=== PATIENT | male | born 1980 | race Two or more races ===

== ENCOUNTER 2018-12-11 13:01 | Emergency (ER) | payer BC ==
[2018-12-11] MEDS ORDERED: Alum Hydrox/Mag Hydrox/Simeth 30 ML, Lidocaine 2% 15 ML PO ONE ×2 (13:25)
--- NOTE | 2018-12-11 13:30 | EDM.PDOC ---
ED HPI GENERAL MEDICAL PROBLEM - General Chief Complaint: Chest Pain Stated Complaint: CHEST PAIN POSSIBLY FROM CELEBREX Time Seen by Provider: 12/11/18 13:12 Source of Information: Reports: Patient, Family () History Limitations: Reports: No Limitations - History of Present Illness INITIAL COMMENTS - FREE TEXT/NARRATIVE: 38-year-old male presents to the ED with diffuse fairly persistent central chest burning discomfort since starting Celebrex tablets 3 days ago. Initially it was intermittent but it is become much more continuous the last 24 hours. His truck note food odynophagia. No real relief with taking Tums and Maalox. Assisted in the pit of his stomach and rating up into his left posterior shoulder and neck area. He has no known heart condition. He was placed on the Celebrex due to carpal tunnel syndrome and is also on a Medrol dose pack. I suspect the combination is causing significant gastritis. He has burping and belching at times to try and get some relief of the discomfort. Eating does seem to help a bit. He states he's had heartburn in the past but never to this severity. Onset: Gradual Onset Date: 12/09/18 Duration: Day(s):, Getting Worse, Waxing/Waning Location: Reports: Chest Quality: Reports: Burning (Epigastric burning discomfort rating up into the chest and left anterior posterior shoulder) Severity: Moderate (6-7 out of 10) Improves with: Reports: None (Tums and Rolaids didn't seem to help much) Worsens with: Reports: Other Context: Denies: Activity, Exercise (Nothing seems to make it worse), Lifting, Sick Contact, Trauma, Other Associated Symptoms: Reports: Chest Pain. Denies: No Other Symptoms, Confusion (Diffuse central burning chest pain starting in the epigastrium.), Cough, cough w sputum, Diaphoresis, Fever/Chills, Headaches, Loss of Appetite, Malaise, Nausea/Vomiting, Rash, Seizure, Shortness of Breath, Syncope Treatments POSITION CLASSIFICATION MANAGER: Reports: Other (see below) (None) Middle Chest Pain Score (Numeric/FACES): 2 - Related Data Allergies Allergy/AdvReac Type Severity Reaction Status Date / Time No Known Allergies Allergy Verified 12/11/18 13:09 Home Meds: Home Meds Celecoxib [CeleBREX] 200 mg PO DAILY 12/11/18 [History] Ranitidine [Zantac] 150 mg PO BID #20 tab 12/11/18 [Rx] Sucralfate 1 gm PO QIDACANDBED #120 ml 12/11/18 [Rx] Past Medical History - Past Health History Medical/Surgical History: Denies Medical/Surgical History Neurological History: Reports: Other (See Below) (Carpal tunnel syndrome) Social & Family History - Tobacco Use Smoking Status *Q: Never Smoker - Recreational Drug Use Recreational Drug Use: No - Living Situation & Occupation Living situation: Reports: Occupation: Employed ED ROS GENERAL - Review of Systems Review Of Systems: See Below Constitutional: Reports: Decreased Appetite. Denies: Fever, Chills, Malaise, Weakness, Fatigue, Weight Loss HEENT: Reports: No Symptoms Respiratory: Reports: No Symptoms. Denies: Shortness of Breath, Wheezing, Pleuritic Chest Pain, Cough, Sputum Cardiovascular: Reports: Chest Pain. Denies: Blood Pressure Problem, Claudication, Dyspnea on Exertion, Edema, Lightheadedness (See history of present illness), Orthopnea, Palpitations Endocrine: Reports: No Symptoms, Fatigue GI/Abdominal: Reports: Abdominal Pain (Burning epigastric discomfort.). Denies : Anorexia, Black Stool, Bloody Stool, Constipation, Diarrhea, Decreased Appetite, Difficulty Swallowing, Distension, Flatus, Hematemesis, Hematochezia, Melena, Other : Reports: No Symptoms Musculoskeletal: Reports: Other (Has carpal tunnel syndrome right hand) Skin: Reports: No Symptoms Neurological: Reports: Other (Carpal tunnel syndrome right hand) Psychiatric: Reports: No Symptoms Hematologic/Lymphatic: Reports: No Symptoms Immunologic: Reports: No Symptoms ED EXAM, GENERAL - Physical Exam Exam: See Below Exam Limited By: No Limitations General Appearance: Alert, WD/WN, No Apparent Distress, Other (Vital signs are all normal other than mild tachypnea 21/m.) Throat/Mouth: Normal Inspection, Normal Lips, Normal Teeth, Normal Oropharynx, Normal Voice, Other. No: Dysphagia (Normal voice) Head: No: Atraumatic (No odynophagia), Normocephalic Neck: Normal Inspection, Supple, Non-Tender, Full Range of Motion. No: Lymphadenopathy (L), Lymphadenopathy (R) Respiratory/Chest: No Respiratory Distress, Lungs Clear, Normal Breath Sounds, No Accessory Muscle Use Cardiovascular: Normal Peripheral Pulses, Regular Rate, Rhythm, No Edema, No Gallop, No Murmur, No Rub GI/Abdominal: Normal Bowel Sounds, Soft, Non-Tender, No Organomegaly, No Abnormal Bruit, No Mass, Pelvis Stable Back Exam: Normal Inspection, Full Range of Motion. No: CVA Tenderness (L), CVA Tenderness (R) Extremities: Normal Inspection, Normal Range of Motion, Non-Tender, No Pedal Edema, Normal Capillary Refill Neurological: Alert, Oriented, CN II-XII Intact, Normal Cognition, Normal Gait Psychiatric: Normal Affect, Normal Mood Skin Exam: Warm, Dry, Intact, Normal Color, No Rash EKG INTERPRETATION EKG Date: 12/11/18 Time: 13:15 Rhythm: NSR Rate (Beats/Min): 71 [place]: Normal P-Wave: Present QRS: Other (Diffuse early transition pattern compatible with his age.) ST-T: Elevated (ST segment elevation V3 to V6 also in 2 and aVF due to diffuse early repolarization pattern.) QT: Normal EKG Interpretation Comments: Borderline ECG Course - Vital Signs Last Recorded V/S: Last Vital Signs Temp 37.0 C 12/11/18 13:07 Pulse 73 12/11/18 13:07 Resp 21 H 12/11/18 13:07 BP 110/68 12/11/18 13:07 Pulse Ox 97 12/11/18 13:07 - Orders/Labs/Meds Orders: Active Orders 24 hr Category Date Time Status EKG Documentation Completion [RC] ASDIRECTED Care 12/11/18 13:29 Active EKG 12 Lead [EK] Stat Ther 12/11/18 13:29 Ordered Meds: Medications Discontinued Medications Generic Name Dose Route Start Last Admin Trade Name Freq PRN Reason Stop Dose Admin Al Hydroxide/Mg Hydroxide 30 0 ml 12/11/18 13:25 12/11/18 13:31 ml/ Lidocaine HCl 15 ml PO 12/11/18 13:26 45 ml ONETIME ONE Administration Dicyclomine HCl 20 mg 12/11/18 14:00 12/11/18 14:06 Bentyl PO 12/11/18 14:01 20 mg ONETIME ONE Administration Hyoscyamine 0.125 mg 12/11/18 14:00 12/11/18 14:06 Hyomax-Sl SL 12/11/18 14:01 0.125 mg ONETIME ONE Administration Ranitidine HCl 300 mg 12/11/18 14:01 12/11/18 14:05 Zantac PO 12/11/18 14:02 300 mg ONETIME ONE Administration Sucralfate 1 gm 12/11/18 14:01 12/11/18 14:06 Carafate PO 12/11/18 14:02 1 gm ONETIME ONE Administration - Radiology Interpretation Free Text/Narrative:: 38-year-old male presents to the ED with epigastric retrosternal chest burning discomfort gradually worsening over the last 3 days since starting Celebrex 200 mg tablets once daily. He is also on a Medrol Dosepak. He's been on these medications for attempt to try and relieve carpal tunnel syndrome. Examination is normal. ECG reveale reveals an early R-wave transition and diffuse repolarization pattern compatible with his age. We'll try GI cocktail to see if this provides any relief. - Re-Assessments/Exams Free Text/Narrative Re-Assessment/Exam: 12/11/18 13:59 patient did get transient relief of the chest pressure occurring discomfort with the GI cocktail. He still feels it in his left precordial chest and a little bit in his throat neck area. We'll try Levsin 0.125 mg sublingually with Bentyl 20 mg orally and Zantac 300 mg by mouth. After this I will give him sucralfate suspension 1 gm. 12/11/18 14:40 patient states that he is feeling much improved with no chest pain at this time. Going to discharge him on sucralfate suspension 1 gm 4 times daily half hour before meals and at bedtime for the next 3 days. Zantac 150 milligrams twice daily for the next 8 days to allow the esophagus to heal completely. Of course the Celebrex will be discontinued. Departure - Departure Time of Disposition: 14:41 Disposition: Home, Self-Care 01 Condition: Fair Clinical Impression: Esophagitis Adverse effects of medication Qualifiers: Encounter type: initial encounter Qualified Code(s): T50.905A - Adverse effect of unspecified drugs, medicaments and biological substances, initial encounter Gastroesophageal reflux disease Qualifiers: Esophagitis presence: with esophagitis Qualified Code(s): K21.0 - Gastro- esophageal reflux disease with esophagitis Prescriptions: Ranitidine [Zantac] 150 mg PO BID #20 tab Sucralfate 1 gm PO QIDACANDBED #120 ml Instructions: Esophagitis, Drug Allergy, Xqvm-of-Faor Referrals: Joni Griffiths MD [Primary Care Provider] - Forms: ED Department Discharge Additional Instructions: Evaluation in the emergency room today in regards to persistent burning discomfort in the distribution of your food pipe and pit of your stomach since starting Celebrex medication 3 days ago. Apparently this was also in combination with a Medrol Dosepak and the combination can sometimes cause significant inflammation of the stomach and the esophagus. ECG and heart tracing were normal. You're treated with several medications in an effort to relieve your chest discomfort. There was mild transient relief with the GI cocktail. I believe Levsin did relieve some of the spasm of the food pipe. Bucky will take it about an hour to work. Treatment is to continue sucralfate suspension 1 g or 10 mils one half hour before meals and at bedtime for the next 3 days. Zantac 150 milligrams twice daily bedtime and morning for the next 10 days. You should take a Zantac 150 milligrams at bedtime tonight. Expect marked improvement over the next 3 days and complete improvement by 10 days. May have to stay away from spicy foods or acidic foods such as orange juice etc. for the next 5-7 days until the esophagus settles down. Also alcohol should be avoided. - My Orders Last 24 Hours: My Active Orders 12/11/18 13:29 EKG Documentation Completion [RC] ASDIRECTED EKG 12 Lead [EK] Stat - Assessment/Plan Last 24 Hours: My Active Orders 12/11/18 13:29 EKG Documentation Completion [RC] ASDIRECTED EKG 12 Lead [EK] Stat
[2018-12-11] MEDS ORDERED: Hyoscyamine 0.125 MG Tab.SL SL ONE (14:00)
[2018-12-11] MEDS ORDERED: Dicyclomine 10 MG Cap PO ONE (14:00)
[2018-12-11] MEDS ORDERED: Ranitidine 15 MG/ML Syrup 10 ML UD Cup PO ONE (14:01)
[2018-12-11] MEDS ORDERED: Sucralfate Suspension 1 GM/10 ML Cup PO ONE (14:01)
== END 2018-12-11 14:57 | disposition home or self-care (01) ==
LOC: JD.ED 13:01
DX: K21.0 Gastro-esophageal reflux disease with esophagitis (principal); T39.395A Adverse effect of other nonsteroidal anti-inflammatory drugs [NSAID], initial encounter; Z79.899 Other long term (current) drug therapy
CPT/HCPCS: 93005; 99284; A9270; 93010; 99285